=== PATIENT | female | born 1970 | race Caucasian/White ===

== ENCOUNTER 2017-05-20 06:24 | Day surgery (SDC) | payer OTHER ==
[~2017-05-20] VITALS: Ht 162.6 cm; Wt 62.6 kg
[2017-05-20 07:09] VITALS: Ht 162.6 cm; Wt 62.6 kg
[2017-05-20 07:46] VITALS: BP 131/79; PULSE 99; RESP 18
--- NOTE | 2017-05-20 08:38 | OPPN ---
Date/Time of Note Date/Time of Note DATE: 05/20/17 TIME: 08:36 Operative Report Preoperative Diagnosis Rectal bleeding Postoperative Diagnosis Internal hemorrhoid Operation/Procedure Performed Colonoscopy Provider: VICTORIANO LLANOS MD Anesthesia Type: moderate sedation Estimated blood loss: none Transfusion Required: no Specimen: none Grafts/Implants: none Complications: no VICTORIANO LLANOS MD May 20, 2017 08:38
[2017-05-20] MEDS ORDERED: FENTAnyl 50 MCG/ML VIAL ONE (08:43)
[2017-05-20] MEDS ORDERED: MIDAZOLAM 1 MG/ML 2 ML INJ ONE ×3 (08:43)
--- NOTE | 2017-05-20 10:00 | GILP ---
DATE OF PROCEDURE: 05/20/2017 PROCEDURE PERFORMED: Colonoscopy. PREOPERATIVE DIAGNOSIS: Rectal bleeding. POSTOPERATIVE DIAGNOSES: 1. Colonoscopy all the way to the cecum. 2. Internal hemorrhoids. INDICATION: Ms. Marline Cruz is a 47-year-old female patient who was complaining of rectal bleeding. The patient was scheduled for colonoscopy for further evaluation. The procedure and possible complications were well explained to the patient. The patient understood and consented to the procedure. DESCRIPTION OF PROCEDURE: Under the influence of fentanyl and Versed, the colonoscope was carefully introduced in the rectum, and under direct vision, it was advanced all the way to the cecum. FINDINGS: The patient had internal hemorrhoids. No colitis or neoplasm was identified. The patient tolerated the procedure very well. There was no complication from the procedure. At the end of procedure, she was awake with stable vital signs and she was discharged home in the care of her family. IMPRESSION: 1. Colonoscopy all the way to the cecum. 2. Internal hemorrhoids. 3. No colitis or neoplasm was identified. PLAN: 1. Anusol HC 2.5 percent cream at bedtime. 2. Next screening colonoscopy in 10 years. Dictated By: MD DENG Pruett/oral/antonio /Document#: [id number]
== END 2017-05-20 13:21 | disposition home or self-care (01) ==
LOC: GIL 06:24
PROVIDERS: ATTEND Internal Medicine Gastroenterology
DX: K64.8 Other hemorrhoids (principal)
CPT/HCPCS: 45378; 84703; J2250; J3010; Z7610